=== PATIENT | male | born 1930 | race Caucasian/White ===

== ENCOUNTER 2018-05-04 10:27 | Day surgery (SDC) | payer MEDICARE, BC ==
[2018-05-04] VITALS (9 sets, daily range): BP systolic 124–170; BP diastolic 81–107
[~2018-05-04] VITALS: Ht 180.3 cm; Wt 86.2 kg
[2018-05-04] MEDS ORDERED: diphenhydrAMINE 25mg capsule PO PRN (10:55)
[2018-05-04] MEDS ORDERED: sod bicarbonate 150mEq in D5W 1,150 ML IV ONE (10:55)
[2018-05-04] MEDS ORDERED: ASPI-1265 PO (11:50)
[2018-05-04] MEDS ORDERED: NAPR220T67 PO (11:50)
[2018-05-04] MEDS ORDERED: PRAV10TA39 PO (11:50)
[2018-05-04] MEDS ORDERED: CARB-87 PO (11:50)
[2018-05-04] MEDS ORDERED: EZET10TA14 PO (11:50)
[2018-05-04] MEDS ORDERED: ALLO100T PO (11:50)
[2018-05-04] MEDS ORDERED: LISI-604 PO (11:50)
[2018-05-04] MEDS ORDERED: ALPR-624 PO (11:50)
[2018-05-04 12:20] LABS: BASOPHILS % (AUTO) 0.7 % (0-1); EOSINOPHILS # (AUTO) 0.6 X10'3 (0-0.9); EOSINOPHILS % (AUTO) 8.8 % (0-6); HEMOGLOBIN 13.9 g/dl (14.0-17.9); LYMPHOCYTES # (AUTO) 1.4 X10'3 (1.1-4.8); MEAN CORPUSCULAR HEMOGLOBIN 32.4 PG (27.0-31.0); MEAN CORPUSCULAR HGB CONC 33.1 % (33.0-36.5); MEAN PLATELET VOLUME 9.5 FL (7.4-10.4); MONOCYTES # (AUTO) 0.5 X10'3 (0-0.9); MONOCYTES % (AUTO) 7.7 % (2-12); NEUTROPHILS # (AUTO) 3.7 X10'3 (1.8-7.7); NEUTROPHILS % (AUTO) 59.8 % (42-75); PLATELET COUNT 152 X10'3 (140-440); RED BLOOD COUNT 4.29 X10'6 (4.70-6.10); RED CELL DISTRIBUTION WIDTH 15.3 % (11.5-14.5); WHITE BLOOD COUNT 6.3 X10'3 (4.5-11.0)
[2018-05-04] MEDS ORDERED: LIDOcaine 1% (10mg/ml)w/preservative injection 20ml MDV ONE (12:29)
[2018-05-04] MEDS ORDERED: iohexol 350 MG/ML 50ML vial IV ONE (12:30)
[2018-05-04] MEDS ORDERED: iohexol 350MG/ML 100ml bottle IV ONE (12:30)
[2018-05-04 12:32] LABS: ANION GAP 11 (8-16); BLOOD UREA NITROGEN 24 MG/DL (7-18); CALCIUM 8.6 MG/DL (8.5-10.1); CHLORIDE 103 MMOL/L (99-107); CREATININE 0.96 MG/DL (0.60-1.10); GLUCOSE 115 MG/DL (70-104); POTASSIUM 4.3 MMOL/L (3.5-5.1); SODIUM 141 MMOL/L (135-145); TOTAL CARBON DIOXIDE 26.9 MMOL/L (24-32); eGFR 74 ML/MIN
[2018-05-04 12:44] LABS: INR 1.1 INR; PROTHROMBIN TIME 10.9 SECONDS (9.0-12.0)
[2018-05-04] MEDS ORDERED: midazolam 2 mg/2 ml injection ONE (12:55)
[2018-05-04] MEDS ORDERED: proCHLORperazine 10 MG/2 ml inj ONE (12:55)
[2018-05-04] MEDS ORDERED: fentaNYL/PF 50MCG/1 ML 2ML syringe ONE (12:55)
== END 2018-05-04 17:40 | disposition home or self-care (01) ==
LOC: SSTAY O 10:27
PROVIDERS: ATTEND Internal Medicine Cardiovascular Disease
DX: I25.810 Atherosclerosis of coronary artery bypass graft(s) without angina pectoris (principal); I10 Essential (primary) hypertension; E78.5 Hyperlipidemia, unspecified; G20 Parkinson's disease; M10.9 Gout, unspecified; Z86.73 Personal history of transient ischemic attack (TIA), and cerebral infarction without residual deficits; Z95.0 Presence of cardiac pacemaker; Z95.1 Presence of aortocoronary bypass graft; Z96.659 Presence of unspecified artificial knee joint; F15.90 Other stimulant use, unspecified, uncomplicated; Z98.890 Other specified postprocedural states
CPT/HCPCS: 36415; 80048; 83735; 85025; 85610; 93005; 93461; 99152; 99153; A6257; C1760; C1769; C1894; J0780; J1644; J2001; J2250; J3010; Q0163; Q9967; A4620